=== PATIENT | male | born 1940 | race Caucasian/White ===

== ENCOUNTER 2019-07-26 12:05 | Emergency (ER) | payer MEDICARE, BC ==
[~2019-07-26] VITALS: Ht 195.6 cm; Wt 95.0 kg
[~2019-07-26 12:05] MED LIST: APIX5TAB PO; ATOR20TA65 PO; CHOL100044 PO; DILT-26 PO; EZET10TA13 PO; FINA1TAB PO; GABA-529 PO; LEVO100T9 PO; MULT-1234 PO; SAW/1TAB2 PO
[2019-07-26] MEDS ORDERED: SODIUM CHLORIDE 0.9% 1,000 ML IV ONE (12:20)
[2019-07-26 13:03] LABS: BASOPHILS % 0.6 % (0.0-2.0); EOSINOPHILS % 0.9 % (0.0-5.0); HEMOGLOBIN. 15.8 g/dL (14.0-18.0); LYMPHOCYTES % 17.6 % (20.0-50.0); MEAN CORPUSCULAR HEMOGLOBIN 34.3 pg (28.0-32.0); MEAN PLATELET VOLUME 7.6 fl (7.4-10.4); MONOCYTES % 9.8 % (2.0-8.0); NEUTROPHILS % 71.1 % (40.0-76.0); PLATELET 267 x1000/uL (130-400); RED BLOOD CELL COUNT 4.59 mill/uL (4.7-6.1); RED CELL DISTRIBUTION WIDTH 13.8 % (11.6-14.6)
[2019-07-26 13:08] LABS: CHLORIDE 105 mEq/L (98-107)
[2019-07-26 13:09] LABS: INR 1.1; PROTHROMBIN TIME 11.4 sec (9.6-11.0)
[2019-07-26 13:57] LABS: CLARITY URINE CLEAR (CLEAR); COLOR URINE DARK YELLOW (YELLOW); KETONES URINE TRACE (NEGATIVE); LEUKOCYTE ESTERASE URINE NEGATIVE (NEGATIVE); NITRITE URINE NEGATIVE (NEGATIVE); OCCULT BLOOD URINE NEGATIVE (NEGATIVE); PROTEIN URINE NEGATIVE (NEGATIVE); SPECIFIC GRAVITY URINE 1.027 (1.005-1.030)
[2019-07-26] MEDS ORDERED: LEVOTHYROXINE SODIUM 100MCG TABLET PO ONE (14:30)
[2019-07-26] MEDS ORDERED: FLECAINIDE 50MG TABLET PO SCH (17:00)
[2019-07-26] MEDS ORDERED: APIXABAN 5 MG TABLET PO SCH (17:00)
[2019-07-26 17:20] VITALS: BP 110/58
[2019-07-26] MEDS ORDERED: DILTIAZEM HCL 30MG TABLET PO SCH (18:00)
[2019-07-26] MEDS ORDERED: ATORVASTATIN CALCIUM 20MG TABLET PO SCH (21:00)
== END 2019-07-26 18:18 | disposition home or self-care (01) ==
LOC: ER 12:54 → CANBEDREQ 19:14
DX: I48.91 Unspecified atrial fibrillation (principal); Z20.828 Contact with and (suspected) exposure to other viral communicable diseases; I95.9 Hypotension, unspecified; E78.00 Pure hypercholesterolemia, unspecified; Z79.899 Other long term (current) drug therapy; Z98.890 Other specified postprocedural states
CPT/HCPCS: 36415; 71045; 80053; 81003; 84443; 84484; 85025; 85610; 93005; 96360; 96361; 99285; J7030; U0003

== ENCOUNTER 2020-04-06 12:14 | Inpatient (IN) | payer MEDICARE, BC ==
[~2020-04-06] VITALS: Ht 195.6 cm; Wt 95.3 kg
[~2020-04-06 12:14] MED LIST changes: -ETOMIDATE 2MG/ML 10ML VIAL IV ONE; -LIDOCAINE HCL/PF 1% 10 MG/ML 5ML VIAL ONE
[2020-04-06 14:12] VITALS: BP 122/61
[2020-04-06 15:00] VITALS: BP 114/78
[2020-04-06 16:00] VITALS: BP 141/87
[2020-04-06 17:49] VITALS: BP 115/72
[2020-04-06] MEDS ORDERED: APIXABAN 5 MG TABLET PO SCH (19:30)
[2020-04-06 20:00] VITALS: BP 104/68
[2020-04-06] MEDS ORDERED: ATORVASTATIN CALCIUM 20MG TABLET PO SCH (21:00)
[2020-04-06 21:36] LABS: BASOPHILS % 0.7 % (0.0-2.0); EOSINOPHILS % 2.9 % (0.0-5.0); HEMATOCRIT. 45.3 % (42.0-52.0); HEMOGLOBIN. 15.2 g/dL (14.0-18.0); LYMPHOCYTES % 23.8 % (20.0-50.0); MEAN CORPUSCULAR HEMOGLOBIN 32.2 pg (28.0-32.0); MEAN CORPUSCULAR VOLUME 95.8 fL (80.0-94.0); MEAN PLATELET VOLUME 7.6 fl (7.4-10.4); MONOCYTES % 12.4 % (2.0-8.0); NEUTROPHILS % 60.2 % (40.0-76.0); PLATELET 280 x1000/uL (130-400); RED BLOOD CELL COUNT 4.72 mill/uL (4.7-6.1); RED CELL DISTRIBUTION WIDTH 14.1 % (11.6-14.6)
[2020-04-06 22:01] VITALS: BP 113/70
[2020-04-07] VITALS: BP 114/80
[2020-04-07 02:00] VITALS: BP 112/72
[2020-04-07 04:00] VITALS: BP 111/67
[2020-04-07 06:00] VITALS: BP 101/56
[2020-04-07] MEDS ORDERED: LEVOTHYROXINE SODIUM 100MCG TABLET PO SCH (06:50)
[2020-04-07] MEDS ORDERED: FENTANYL CITRATE/PF 50MCG/ML 5ML VIAL ONE (07:25)
[2020-04-07] MEDS ORDERED: MIDAZOLAM HCL 5 MG/5 ML VIAL ONE (07:25)
[2020-04-07 07:56] LABS: BASOPHILS % 1.1 % (0.0-2.0); EOSINOPHILS % 3.3 % (0.0-5.0); HEMATOCRIT. 45.1 % (42.0-52.0); HEMOGLOBIN. 15.4 g/dL (14.0-18.0); LYMPHOCYTES % 25.7 % (20.0-50.0); MEAN CORPUSCULAR HEMOGLOBIN 32.7 pg (28.0-32.0); MEAN CORPUSCULAR VOLUME 95.6 fL (80.0-94.0); MEAN PLATELET VOLUME 7.8 fl (7.4-10.4); MONOCYTES % 10.5 % (2.0-8.0); NEUTROPHILS % 59.4 % (40.0-76.0); PLATELET 272 x1000/uL (130-400); RED BLOOD CELL COUNT 4.71 mill/uL (4.7-6.1); RED CELL DISTRIBUTION WIDTH 13.7 % (11.6-14.6)
[2020-04-07 08:13] LABS: CHLORIDE 105 mEq/L (98-107)
[2020-04-07] MEDS ORDERED: PROPOFOL 10MG/ML 100ML 100 ML IV ONE (08:17)
[2020-04-07] MEDS ORDERED: LIDOCAINE HCL/PF 1% 10 MG/ML 5ML VIAL ONE (08:17)
[2020-04-07 08:56] VITALS: BP 121/72
[2020-04-07] MEDS ORDERED: FLECAINIDE 50MG TABLET PO SCH (09:00)
[2020-04-07] MEDS ORDERED: DILTIAZEM HCL 120MG CAPSULE CD 24HR PO SCH (09:00)
[2020-04-07] MEDS ORDERED: ATROPINE SULFATE 1MG/10ML SYR IV PRN (09:00)
[2020-04-07] MEDS ORDERED: ACETAMINOPHEN 325MG TABLET PO PRN (09:00)
[2020-04-07] MEDS ORDERED: APIXABAN 5 MG TABLET PO SCH (09:00)
== END 2020-04-07 10:00 | disposition home or self-care (01) | DRG 310 ==
LOC: CARD 12:14 → 3WST 12:15
PROVIDERS: ADMIT Specialist; ATTEND Specialist
PROC: 5A2204Z Restoration of Cardiac Rhythm, Single (ICD-10-PCS; principal; 2020-04-07)
DX: I48.91 Unspecified atrial fibrillation (principal); I48.3 Typical atrial flutter; E03.9 Hypothyroidism, unspecified; I42.9 Cardiomyopathy, unspecified; I45.3 Trifascicular block; E78.5 Hyperlipidemia, unspecified; I25.10 Atherosclerotic heart disease of native coronary artery without angina pectoris; E83.119 Hemochromatosis, unspecified; Z79.01 Long term (current) use of anticoagulants
CPT/HCPCS: 36415; 80048; 85025; 87426; 92960; 93005; J2250; J2704; J3010; J3490

== ENCOUNTER → 2020-04-06 | Outpatient (CLI) | payer MEDICARE, BC ==
[~2020-04-06] MED LIST changes: +ETOMIDATE 2MG/ML 10ML VIAL IV ONE; +LIDOCAINE HCL/PF 1% 10 MG/ML 5ML VIAL ONE
== END | disposition home or self-care (01) ==
LOC: LAB 11:01
PROVIDERS: ATTEND Specialist
DX: Z20.822 Contact with and (suspected) exposure to COVID-19 (principal)
CPT/HCPCS: 87426; J3490